=== PATIENT | female | born 1960 | race Hispanic/Latino ===

== ENCOUNTER 2016-09-21 14:00 | Observation (INO) | payer BC, OTHER ==
[2016-09-21] MEDS ORDERED: Sodium Chloride 0.9% 50 ML IV ONE (17:21)
[2016-09-21] MEDS ORDERED: Iodixanol 320 MG/ML 100 ML BOTTLE IV ONE (17:21)
[2016-09-21 22:21] VITALS: BMI 20.1
[2016-09-21] MEDS ORDERED: CODEINE PO PRN (23:53)
[2016-09-21] MEDS ORDERED: CAFF PO PRN (23:53)
[2016-09-21] MEDS ORDERED: [UNRECOGNIZED DRUG - OTHER] PO PRN (23:53)
[2016-09-21] MEDS ORDERED: BUTALBIT PO PRN (23:53)
[2016-09-21] MEDS ORDERED: ACETAMIN PO PRN (23:53)
[2016-09-22] MEDS ORDERED: Levothyroxine 88 MCG TAB PO SCH (06:30)
[2016-09-22 06:40] VITALS: TEMP 97.6
[2016-09-22 07:46] LABS: HEMOGLOBIN 12.6 g/dL (12.0-16.0); MEAN CELL VOLUME 89.3 fl (81.0-99.0); MEAN CORPUSCULAR HEMOGLOBIN 29.5 pg (27.0-31.0); MEAN CORPUSCULAR HGB CONC 33.1 g/dL (33.0-37.0); RBC 4.25 Mil/uL (3.80-5.20); WHITE BLOOD COUNT 4.8 K/uL (4.8-10.8)
[2016-09-22 07:47] LABS: ALB/GLOB RATIO 1.6 (1.0-2.1); ALBUMIN 3.3 g/dL (3.5-5.0); ALT/SGPT 60 U/L (9-52); AST/SGOT 41 U/L (14-36); BLOOD UREA NITROGEN 10 mg/dl (7-17); CALCIUM 8.7 mg/dL (8.4-10.2); GFR AFRICAN-AMERICAN > 60; GFR NON-AFRICAN AMERICAN > 60
[2016-09-22] MEDS ORDERED: ESTRADIOL 2 MG PO SCH (09:00)
[2016-09-22] MEDS ORDERED: Pantoprazole 40 mg EC Tab PO SCH (09:00)
[2016-09-22] MEDS ORDERED: LINACLOTIDE 72 MCG PO SCH (09:00)
[2016-09-22] MEDS ORDERED: Enoxaparin 40 mg Syringe SC SCH ×3 (09:00)
[2016-09-22 10:10] VITALS: O2SAT 100
[2016-09-22] MEDS: Apap-Butalbital-Caffeine 325-50-40mg Tab PO PRN ×2 (12:45→18:01)
[2016-09-22 18:24] VITALS: BP 100/77; PULSE 75; RESP 15
--- NOTE | 2016-09-23 10:07 | RAD ---
HISTORY: COMPARISON: No prior. FINDINGS: LUNGS: No active pulmonary disease. PLEURA: No significant pleural effusion identified, no pneumothorax apparent. CARDIOVASCULAR: Normal. OSSEOUS STRUCTURES: No significant abnormalities. VISUALIZED UPPER ABDOMEN: Normal. OTHER FINDINGS: None. IMPRESSION: No active disease.
--- NOTE | 2016-09-23 15:14 | CT ---
PROCEDURE: CTA Chest with contrast HISTORY: COMPARISON: Comparison made with chest radiograph 09/21/2016 TECHNIQUE: Contiguous axial images were obtained through the chest with intravenous contrast enhancement. Sagittal and coronal reconstructions were performed. IV contrast: 75 cc Visipaque 320 Radiation dose (DLP): 209.65 mGy-cm. This CT exam was performed using one or more of the following dose reduction techniques: Automated exposure control, adjustment of the mA and/or kV according to patient size, and/or use of iterative reconstruction technique. FINDINGS: LUNGS: Mild passive/dependent type atelectasis seen in the posterior lower lung zones. No focal consolidation mass or obvious nodule identified. . MEDIASTINUM: . The visualized portions of the pulmonary trunk, right and left main, lobar, segmental and subsegmental branches of the pulmonary arteries are well opacified with no definitive filling defects seen to suggest pulmonary embolus. Pulmonary trunk measures approximately 2.1 cm. Heart size is within range of normal. No significant pericardial effusion. Ascending thoracic aorta measures approximately 2.68 cm and descending thoracic aorta measures approximately 2.0 cm No evidence of significant mediastinal or hilar adenopathy. Central airways are midline and patent. The esophagus is distended with air throughout most of its course with small hiatal hernia that is associate with some mild wall thickening of the distal esophagus likely due to protrusion of gastric mucosa. Esophagitis not excluded. PLEURA: No pleural fluid. No pneumothorax. BONES: Mild multilevel degenerative spondylosis of the thoracic spine. There are no acute compression fractures nor retropulsed fragments. . There is a vague this small elliptical shaped lucency within the posterior aspect of the T2 segment nonspecific. This could represent entry point of the vascular plexus. UPPER ABDOMEN: Grossly unremarkable. OTHER FINDINGS: Bilateral breast implants. IMPRESSION: No evidence of acute central pulmonary embolus. No acute infiltrates, effusions or pneumothorax. Mild dependent atelectasis both posterior lower lung zones. . Small hiatal hernia with mild wall thickening of the distal esophagus that could be due to protrusion of gastric mucosa. Esophagitis not excluded. Bilateral breast implants.
[2016-09-24 00:22] LABS: HEMOGLOBIN 13.7 g/dL (12.0-16.0); MEAN CELL VOLUME 89.2 fl (81.0-99.0); MEAN CORPUSCULAR HEMOGLOBIN 29.6 pg (27.0-31.0); MEAN CORPUSCULAR HGB CONC 33.2 g/dL (33.0-37.0); RBC 4.63 Mil/uL (3.80-5.20); RED CELL DISTRIBUTION WIDTH 14.2 % (11.5-14.5); WHITE BLOOD COUNT 6.8 K/uL (4.8-10.8)
[2016-09-24 01:27] LABS: BLOOD UREA NITROGEN 16 mg/dl (7-17); GFR AFRICAN-AMERICAN > 60; GFR NON-AFRICAN AMERICAN > 60
[2016-09-24 01:28] LABS: ALB/GLOB RATIO 1.8 (1.0-2.1); ALBUMIN 4.3 g/dL (3.5-5.0); AST/SGOT 67 U/L (14-36); CALCIUM 9.6 mg/dL (8.4-10.2)
[2016-09-24 01:29] LABS: ALT/SGPT 75 U/L (9-52)
--- NOTE | 2016-09-25 09:00 | US ---
Bilateral lower extremity venous Doppler dated 09/21/2016. History: Shortness of breath. Rule out DVT. Duplex interrogation of the deep veins of the right and left lower extremities performed in standard fashion. No prior. Findings: The visualized deep veins of the right and left lower extremities exhibit normal flow, compressibility augmentation without evidence of DVT Impression: No evidence of DVT seen within the deep veins of the right or left lower extremities. Note that concordant findings provided by overnight radiology service
--- NOTE | 2016-09-26 06:54 | CARD ---
APPROVED REPORT EKG Measurement Heart [id number] <Conclusion> Normal sinus rhythm Normal ECG
== END 2016-09-22 18:35 | disposition home or self-care (01) ==
LOC: H.ER 14:00 → EDBD 19:30 → H.ERHOLD 19:30 → H.ER 20:40 → H.ERHOLD 23:26 → UNDOADMOB 23:26 → H.ICU/CCU 09-22 00:04 → H.ERHOLD 09-22 00:04
PROVIDERS: ADMIT Family Medicine; ATTEND Family Medicine
DX: R07.9 Chest pain, unspecified (principal); G71.0 Muscular dystrophy; I73.00 Raynaud's syndrome without gangrene; Z88.0 Allergy status to penicillin
CPT/HCPCS: 71010; 71275; 80053; 84484; 85027; 87081; 93005; 93970; 96372; 99285; G0378; J1650; Q9967